=== PATIENT | male | born 1965 | race Caucasian/White ===

== ENCOUNTER 2018-02-03 07:54 | Day surgery (SDC) | payer BC ==
[~2018-02-03 07:54] MED LIST: ONDANSETRON 4 MG INJ
[2018-02-03] MEDS: BUPIVACAINE 0.5% (MPF) 30 ML INJ INJ (08:00)
[2018-02-03] MEDS ORDERED: PROPOFOL 20 ML (08:19)
[2018-02-03] MEDS ORDERED: NEOSTIGMINE 3 MG/3 ML SYRINGE (08:19)
[2018-02-03] MEDS ORDERED: MIDAZOLAM 1 MG/ML 2 ML INJ (08:19)
[2018-02-03] MEDS ORDERED: ROCURONIUM 50 MG INJ ×2 (08:19→11:22)
[2018-02-03] MEDS ORDERED: LIDOCAINE 2% (SDV) 5 ML INJ (08:19)
[2018-02-03] MEDS ORDERED: FENTAnyl 50 MCG/ML VIAL (08:19)
[2018-02-03] MEDS ORDERED: GLYCOPYRROLATE 0.4 MG INJ (08:19)
[2018-02-03] MEDS ORDERED: DEXAMETHASONE 4 MG/ML 1 ML INJ (08:20)
[2018-02-03] MEDS ORDERED: SUCCINYLCHOLINE CHLORIDE 100 MG/5 ML SYG IV (08:24)
[2018-02-03] MEDS ORDERED: CEFAZOLIN 1 GM INJ (08:24)
[2018-02-03] MEDS ORDERED: HYDROmorphONE 1 MG/5 ML IV SYRINGE IV ×3 (11:19→12:00)
[2018-02-03] MEDS ORDERED: ONDANSETRON 4 MG INJ (11:20)
[2018-02-03] MEDS: HYDROmorphONE 1 MG/5 ML IV SYRINGE IV ×2 (11:24→11:41)
[2018-02-03] MEDS: ONDANSETRON 4 MG INJ IV (11:25)
[2018-02-03] MEDS ORDERED: DIPHENHYDRAMINE 50 MG INJ (11:51)
[2018-02-03] MEDS: DIPHENHYDRAMINE 50 MG INJ IV (12:14)
== END 2018-02-03 12:40 | disposition home or self-care (01) ==
LOC: SDS 07:54
DX: R59.0 Localized enlarged lymph nodes (principal)
CPT/HCPCS: 31622; 87102; 87116; 88307; 88312; 88331

== ENCOUNTER 2018-09-29 16:27 | Emergency (ER) | payer BC ==
[2018-09-29] MEDS: HYDROCODONE/APAP (10/325) TAB PO (17:07)
[2018-09-29] MEDS: KETOROLAC 30 MG INJ IM (17:07)
[2018-09-29 17:35] LABS: ADD MAN DIFF? NO; BASOPHIL # 0.1 10^3/ul (0.0-0.1); BASOPHILS % 0.9 % (0.0-2.0); EOSINOPHILS # 0.5 10^3/ul (0.0-0.5); EOSINOPHILS % 7.7 % (0.0-7.0); HEMATOCRIT 39.4 % (42.0-52.0); HEMOGLOBIN 12.1 g/dl (14.0-18.0); LYMPHOCYTES # 1.9 10^3/ul (0.8-2.9); LYMPHOCYTES % 28.2 % (15.0-51.0); MEAN CORPUSCULAR HEMOGLOBIN 20.8 pg (29.0-33.0); MEAN CORPUSCULAR HGB CONC 30.7 g/dl (32.0-37.0); MEAN CORPUSCULAR VOLUME 67.6 fl (82.0-101.0); MEAN PLATELET VOLUME 10.2 fl (7.4-10.4); MONOCYTE # 0.7 10^3/ul (0.3-0.9); MONOCYTES % 9.8 % (0.0-11.0); NEUTROPHIL # 3.5 10^3/ul (1.6-7.5); NEUTROPHILS % 53.2 % (39.0-77.0); PLATELET COUNT 226 10^3/UL (140-415); RED BLOOD COUNT 5.83 10^6/ul (4.70-6.10); RED CELL DISTRIBUTION WIDTH 14.9 % (11.5-14.5)
[2018-09-29 17:35] LABS: WHITE BLOOD COUNT 6.6 10^3/ul (4.8-10.8)
[2018-09-29 17:54] LABS: ANION GAP 8 (5-13); BLOOD UREA NITROGEN 20 mg/dl (7-20); CALCIUM 9.3 mg/dl (8.4-10.2); CARBON DIOXIDE 24 mmol/L (21-31); CHLORIDE 111 mmol/L (97-110); CREATININE 0.83 mg/dl (0.61-1.24); Estimated GFR > 60 mL/min (>60); GLUCOSE 90 mg/dl (70-220); POTASSIUM 3.9 mmol/L (3.5-5.1); SODIUM 143 mmol/L (135-144)
[2018-09-29] MEDS: morphine 4 MG/ML VIAL IV ×3 (19:18→23:37)
[2018-09-30] MEDS: HYDROmorphONE 0.5 MG/0.5 ML SYG IV (00:26)
== END 2018-09-30 05:02 | disposition home or self-care (01) ==
LOC: FTE 09-30 05:02
DX: M48.07 Spinal stenosis, lumbosacral region (principal); M54.41 Lumbago with sciatica, right side; D64.9 Anemia, unspecified
CPT/HCPCS: 51702; 72157; 72158; 80048; 85025; 96372; 96374; 96375; 96376; 99285-25